=== PATIENT | female | born 1945 | race Caucasian/White ===

== ENCOUNTER 2016-12-04 11:53 | Emergency (ER) | payer OTHER, MEDICAID ==
[~2016-12-04] VITALS: Ht 154.9 cm; Wt 72.6 kg
[~2016-12-04 11:53] MED LIST: AMIT25TA9 PO; FAMO20TA98 PO; GLU500 PO; HYDR-4100 PO; LIP10 PO; MOME220A2 IH; VALS80TA2 PO
[2016-12-04 12:11] VITALS: BP_SYST 139
--- NOTE | 2016-12-04 12:23 | NUR ---
Patient to ER bed 1 to gown for evaluation. Side rails up. Report given to Rebecca BILL.
--- NOTE | 2016-12-04 12:24 | NUR ---
ER Dr. Palomino at bedside examining patient.
--- NOTE | 2016-12-04 12:25 | NUR ---
Pt brought by self,A&Ox4, pt c/o left shoulder pain which radiates down arm, pain started 4 months ago but increased today after reaching an object, VS WNL, skin pink and warm, afebrile, no swelling noted, cap refill <3.
--- NOTE | 2016-12-04 13:07 | NUR ---
Pt laying in bed at this time on stable condition, VS WNL.
[2016-12-04 14:23] VITALS: BP_SYST 128
--- NOTE | 2016-12-04 14:24 | NUR ---
Patient given written and verbal discharge instructions and verbalizes understanding. ER MD discussed with patient the results and treatment provided. Patient in stable condition. ID arm band removed. Rx of [place] and Ibuprofen given. Patient educated on pain management and to follow up with PMD. Pain Scale 3/10 tolerable for pt . Opportunity for questions provided and answered.
== END 2016-12-04 14:23 | disposition home or self-care (01) ==
LOC: SED 11:53
DX: M79.621 Pain in right upper arm (principal); E11.9 Type 2 diabetes mellitus without complications; J45.909 Unspecified asthma, uncomplicated; I10 Essential (primary) hypertension; Z88.0 Allergy status to penicillin; Z88.1 Allergy status to other antibiotic agents; Z88.6 Allergy status to analgesic agent
CPT/HCPCS: 73060-TC; 99284

== ENCOUNTER 2017-05-06 10:20 | Emergency (ER) | payer OTHER, MEDICAID ==
[~2017-05-06] VITALS: Ht 154.9 cm; Wt 73.5 kg
[2017-05-06 10:20] VITALS: BP_SYST 131
[2017-05-06 12:10] LABS: BILIRUBIN,URINE NEGATIVE (NEGATIVE); BLOOD, URINE 1+ (NEGATIVE); CLARITY/URINE CLEAR (CLEAR); COLOR,URINE YELLOW (YELLOW); GLUCOSE,URINE NEGATIVE (NEGATIVE); KETONES,URINE NEGATIVE (NEGATIVE); LEUKOCYTE ESTERASE ,URINE NEGATIVE (NEGATIVE); NITRITE, URINE NEGATIVE (NEGATIVE); PROTEIN URINE NEGATIVE (NEGATIVE); UROBILINOGEN,URINE 0.2 (0.2-1.0)
[2017-05-06 12:25] LABS: BACTERIA,URINE FEW /HPF (None Seen); WBC,URINE 0-3 /HPF (0-3)
[2017-05-06] MEDS ORDERED: KETOROLAC TROMETHAMINE 60 MG/2 ML VIAL IM ONE (12:30)
[2017-05-06 12:56] VITALS: BP_SYST 124
== END 2017-05-06 12:56 | disposition home or self-care (01) ==
LOC: SED 10:20
DX: M54.30 Sciatica, unspecified side (principal); J45.909 Unspecified asthma, uncomplicated; E11.9 Type 2 diabetes mellitus without complications; I10 Essential (primary) hypertension; Z88.0 Allergy status to penicillin; Z88.1 Allergy status to other antibiotic agents; Z88.8 Allergy status to other drugs, medicaments and biological substances; Z79.899 Other long term (current) drug therapy
CPT/HCPCS: 81000; 96372; 99283; J1885